=== PATIENT | female | born 1990 | race African-American/Black ===

== ENCOUNTER 2024-03-03 17:55 | Day surgery (SDC) | payer BC, OTHER ==
[2024-03-03] MEDS ORDERED: hydrALAZINE 20 MG/ML VIAL SLOW IVP PRN (19:05)
[2024-03-03] MEDS: Acetaminophen 500 MG TAB PO SCH (19:50)
[2024-03-03] MEDS: Cephalexin 500 MG CAP PO SCH (19:50)
[2024-03-03 20:21] LABS: #Basophils 0.02 10x3/uL (0.0-0.2); #Eosinophils 0.08 10x3/uL (0.0-0.5); #Monocytes 0.75 10x3/uL (0.0-1.1); #Neutrophils 8.21 10x3/uL (1.5-8.4); %Basophils 0.2 % (0.0-2.0); %Eosinophils 0.7 % (0.0-6.0); %Lymphocytes 15.9 % (18.0-47.0); %Monocytes 6.9 % (0.0-10.0); %Neutrophils 75.7 % (40.0-75.0); Hemoglobin 11.2 g/dL (12.0-15.5); Mean Corpuscular Hemoglobin 28.7 pg (27.0-33.0); Mean Corpuscular Volume 89.7 fL (81.6-98.3); Mean Platelet Volume 10.8 fL (7.4-10.4); Platelet Count 334 10x3/uL (150-450); RBC Distribution Width 13.3 % (11.5-14.5); White Blood Cell (WBC) Count 10.9 10x3/uL (3.5-10.5)
[2024-03-03 20:37] LABS: ALT (SGPT) 17 U/L (8-55); AST (SGOT) 16 U/L (5-34); Albumin 2.7 g/dL (3.5-5.0); Alkaline Phosphatase 106 U/L (40-110); Anion Gap 13 mmol/L (10-20); BUN (Urea Nitrogen) 6 mg/dL (7.0-18.7); Bilirubin, Total 0.4 mg/dL (0.2-1.2); Calc. Creatinine Clearance 0 mL/min (70-130); Calcium 9.3 mg/dL (7.8-10.44); Carbon Dioxide 21 mmol/L (22-29); Chloride 108 mmol/L (98-107); Estimated GFR 120; Globulin 3.3 g/dL (2.4-3.5); Glucose 85 mg/dL (70-105); Potassium 3.7 mmol/L (3.5-5.1); Sodium 138 mmol/L (136-145)
[2024-03-03 21:26] VITALS: BMI 28.4
== END 2024-03-03 22:20 | disposition home or self-care (01) ==
LOC: CSHLD/OP 17:55
PROVIDERS: ATTEND Emergency Medicine
DX: O99.891 Other specified diseases and conditions complicating pregnancy (principal); M54.50 Low back pain, unspecified; O21.2 Late vomiting of pregnancy; O23.43 Unspecified infection of urinary tract in pregnancy, third trimester; O10.913 Unspecified pre-existing hypertension complicating pregnancy, third trimester; O99.213 Obesity complicating pregnancy, third trimester; O99.353 Diseases of the nervous system complicating pregnancy, third trimester; G40.909 Epilepsy, unspecified, not intractable, without status epilepticus; Z79.899 Other long term (current) drug therapy; Z98.890 Other specified postprocedural states; Z3A.37 37 weeks gestation of pregnancy
CPT/HCPCS: 36415; 80053; 85025; 99283

== ENCOUNTER 2024-03-12 09:38 | Inpatient (IN) | payer OTHER ==
[2024-03-11 13:03] LABS: Hematocrit 36.2 % (34.9-44.5); Hemoglobin 12.1 g/dL (12.0-15.5); Mean Corpuscular HGB CONC 33.4 g/dL (32.0-36.0); Mean Corpuscular Hemoglobin 29.3 pg (27.0-33.0); Mean Corpuscular Volume 87.7 fL (81.6-98.3); Mean Platelet Volume 10.6 fL (7.4-10.4); Platelet Count 360 10x3/uL (150-450); RBC Distribution Width 13.4 % (11.5-14.5); Red Blood Cell (RBC) Count 4.13 10x6/uL (3.90-5.03); White Blood Cell (WBC) Count 13.2 10x3/uL (3.5-10.5)
[2024-03-11 13:45] LABS: HBsAg Index 0.18 S/CO (0-0.99); Hep B Surf Ag Non-Reactive S/CO (NonReactive); Syphilis Antibody Nonreactive (Nonreactive); Syphilis Antibody Index 0.05 S/CO (<1.00 Non-Reactive)
[2024-03-12] MEDS ORDERED: Promethazine HCl 25 MG/ML VIAL IM PRN ×3 (10:25→18:02)
[2024-03-12] MEDS ORDERED: Ondansetron PF 4 MG/2 ML Vial IVP PRN ×5 (10:25→18:02)
[2024-03-12] MEDS ORDERED: hydrALAZINE 20 MG/ML VIAL SLOW IVP PRN ×2 (10:25→17:40)
[2024-03-12] MEDS ORDERED: Diphenoxylate HCl/Atropine Tablet PO PRN ×2 (10:26)
[2024-03-12] MEDS ORDERED: Misoprostol 200 MCG TAB PR PRN (10:26)
[2024-03-12] MEDS ORDERED: Tranexamic Acid 1,000 MG/10 ML VIAL IVP PRN (10:26)
[2024-03-12] MEDS ORDERED: Carboprost 250 MCG/ML AMP IM PRN (10:26)
[2024-03-12] MEDS ORDERED: Lactated Ringer's 1,000 ML IV SCH (10:30)
[2024-03-12] MEDS ORDERED: Oxytocin 30 units/NS 500 ML 500 ML IV SCH (10:30)
[2024-03-12] MEDS ORDERED: CEFAZOLIN 2 GM in Sodium Chloride 0.9% 100 ML IVPB SCH (10:30)
[2024-03-12 10:40] VITALS: BMI 44.6
[2024-03-12] MEDS: Famotidine/PF 20 mg/2ml Vial SLOW IVP PRN (11:46)
[2024-03-12] MEDS: Bicitra 30 ML UDCUP PO PRN (11:46)
[2024-03-12] MEDS ORDERED: Moisturizing Cream (Eucerin) 113 GM JAR TOP PRN ×2 (12:08→18:02)
[2024-03-12] MEDS ORDERED: Naloxone HCl 0.4 mg/ml Vial IVP PRN ×4 (12:08→18:02)
[2024-03-12] MEDS ORDERED: Morphine 4 MG/ML VIAL SLOW IVP PRN ×2 (12:08→18:02)
[2024-03-12] MEDS ORDERED: Ketorolac Tromethamine 30 MG (1 mL) VIAL IVP PRN (12:08)
[2024-03-12] MEDS ORDERED: Meperidine HCl/PF 25 MG (1 mL) VIAL SLOW IVP PRN ×2 (12:08→18:02)
[2024-03-12] MEDS ORDERED: fentaNYL 50 mcg/mL 1 mL Vial SLOW IVP PRN (12:08)
[2024-03-12] MEDS ORDERED: diphenhydrAMINE 50 MG/ML VIAL IVP PRN (12:08)
[2024-03-12] MEDS ORDERED: Naloxone HCl 0.4 mg/ml Vial IV PRN ×2 (12:08→18:02)
[2024-03-12] MEDS ORDERED: Ketorolac Tromethamine 30 MG (1 mL) VIAL IVP SCH ×2 (12:15→18:15)
[2024-03-12] MEDS ORDERED: Communication Order-Pharmacy FS SCH ×2 (12:15→18:15)
[2024-03-12] MEDS ORDERED: CEFAZOLIN 1 GM VIAL SLOW IVP SCH (15:30)
[2024-03-12] MEDS: CEFAZOLIN 2 GM in Sodium Chloride 0.9% 100 ML IVPB SCH (16:08)
[2024-03-12] MEDS ORDERED: diphenhydrAMINE 25 MG CAP PO PRN (17:40)
[2024-03-12] MEDS ORDERED: Bisacodyl 10 MG SUPP PR PRN (17:40)
[2024-03-12] MEDS ORDERED: Lanolin Ointment 7 GM TUBE TOP PRN (17:40)
[2024-03-12] MEDS: fentaNYL 50 mcg/mL 1 mL Vial SLOW IVP PRN (19:07)
[2024-03-12] MEDS: Morphine PF 10 MG/10 ML VIAL ONE (20:31)
[2024-03-12] MEDS: Dexmedetomidine 200 MCG/2 ML VIAL ONE (20:31)
[2024-03-12] MEDS: Sodium Chloride 0.9% 10 ML ONE (20:32)
[2024-03-12] MEDS: PHENYLEPHRINE-NS 100 MCG/ML 10 ML SYRINGE ONE (20:32)
[2024-03-12] MEDS: Dexamethasone 10 MG/ML VIAL ONE (20:32)
[2024-03-12] MEDS: Oxytocin 10 UNITS/ML VIAL ONE (20:32)
[2024-03-12] MEDS: Ferrous Sulfate 325 MG TAB PO SCH (20:33)
[2024-03-12] MEDS: Ketorolac Tromethamine 30 MG (1 mL) VIAL IVP PRN (22:40)
[2024-03-12] MEDS: Phytonadione Neonatal 1 MG/0.5 ML AMP ONE (22:41)
[2024-03-12] MEDS: Ondansetron PF 4 MG/2 ML Vial ONE (22:41)
[2024-03-12] MEDS: Erythromycin Base 0.5% Oint 1 GM TUBE ONE (22:41)
[2024-03-12] MEDS: Ketorolac Tromethamine 30 MG (1 mL) VIAL ONE (22:41)
[2024-03-13] MEDS: diphenhydrAMINE 50 MG/ML VIAL IVP PRN (04:30)
[2024-03-13 05:53] LABS: Hematocrit 29.9 % (34.9-44.5); Hemoglobin 9.8 g/dL (12.0-15.5); Mean Corpuscular HGB CONC 32.8 g/dL (32.0-36.0); Mean Corpuscular Hemoglobin 29.3 pg (27.0-33.0); Mean Corpuscular Volume 89.3 fL (81.6-98.3); Mean Platelet Volume 10.5 fL (7.4-10.4); Platelet Count 290 10x3/uL (150-450); RBC Distribution Width 13.2 % (11.5-14.5); Red Blood Cell (RBC) Count 3.35 10x6/uL (3.90-5.03)
[2024-03-13] MEDS: Hepatitis B Vaccine 10 MCG/0.5 ML SYR ONE (07:45)
[2024-03-13] MEDS: Boostrix 0.5 ML (Tdap) VIAL (>/=7 yrs of age) IM ONE (07:46)
[2024-03-13] MEDS: Prenatal Vitamin 1 TAB PO SCH (07:47)
[2024-03-13] MEDS: HYDROcodone/Acetaminophen 5/325 mg Tablet PO PRN ×2 (07:47→21:05)
[2024-03-13] MEDS: Simethicone Chewable 80 MG TAB PO PRN (07:47)
[2024-03-13] MEDS: Ibuprofen 800 MG TAB PO SCH (14:17)
[2024-03-13] MEDS: Docusate 100 MG CAP PO PRN (21:05)
[2024-03-14 05:35] LABS: Hematocrit 30.7 % (34.9-44.5); Hemoglobin 10.4 g/dL (12.0-15.5); Mean Corpuscular HGB CONC 33.9 g/dL (32.0-36.0); Mean Corpuscular Hemoglobin 30.1 pg (27.0-33.0); Mean Corpuscular Volume 88.7 fL (81.6-98.3); Mean Platelet Volume 10.8 fL (7.4-10.4); Platelet Count 357 10x3/uL (150-450); RBC Distribution Width 13.6 % (11.5-14.5); Red Blood Cell (RBC) Count 3.46 10x6/uL (3.90-5.03); White Blood Cell (WBC) Count 13.5 10x3/uL (3.5-10.5)
[2024-03-15 07:32] VITALS: BP 127/59; TEMP 98
== END 2024-03-15 13:20 | disposition home or self-care (01) | DRG 787 ==
LOC: CSHLD 09:38 → CSHPP 20:05
PROVIDERS: ADMIT Family Medicine; ATTEND Family Medicine
PROC: 10D00Z1 Extraction of Products of Conception, Low, Open Approach (ICD-10-PCS; principal; 2024-03-12)
DX: O34.211 Maternal care for low transverse scar from previous cesarean delivery (principal); O10.92 Unspecified pre-existing hypertension complicating childbirth; O99.214 Obesity complicating childbirth; Z3A.38 38 weeks gestation of pregnancy; Z37.0 Single live birth; Z90.49 Acquired absence of other specified parts of digestive tract; Z79.899 Other long term (current) drug therapy; Z87.891 Personal history of nicotine dependence; O36.5930 Maternal care for other known or suspected poor fetal growth, third trimester, not applicable or unspecified
CPT/HCPCS: 36415; 51702; 85027; 86780; 86850; 86900; 86901; 87340; J1100; J1200; J1885; J2274; J2405; J2590; J3010; J3490

== ENCOUNTER 2024-03-20 13:11 | Emergency (ER) | payer OTHER | END 2024-03-20 13:48 | disposition home or self-care (01) | LOC: CSHERS 13:11 | DX: Z48.01 Encounter for change or removal of surgical wound dressing (principal) | CPT/HCPCS: 99282 ==

== ENCOUNTER 2025-02-23 09:15 | Inpatient (IN) | payer BC, OTHER ==
[2025-02-22 13:27] LABS: Hematocrit 35.5 % (34.9-44.5); Hemoglobin 12.0 g/dL (12.0-15.5); Platelet Count 375 10x3/uL (150-450)
[2025-02-22 14:21] LABS: HIV (1/2) Antibody/Antigen NonReactive (NonReactive); Hep B Surf Ag NonReactive S/CO (NonReactive)
[2025-02-22 14:22] LABS: HIV 1/2 INDEX 0.22 S/CO (<1.00); Syphilis Antibody Index 0.08 S/CO (<1.00 Non-Reactive)
[2025-02-23] MEDS ORDERED: Methylergonovine 0.2 MG/ML VIAL IM PRN (09:41)
[2025-02-23] MEDS ORDERED: Acetaminophen 500 MG TAB PO PRN (09:41)
[2025-02-23] MEDS ORDERED: Diphenoxylate HCl/Atropine Tablet PO PRN (09:41)
[2025-02-23] MEDS ORDERED: Famotidine/PF 20 mg/2ml Vial SLOW IVP PRN (09:41)
[2025-02-23] MEDS ORDERED: hydrALAZINE 20 MG/ML VIAL SLOW IVP PRN (09:41)
[2025-02-23] MEDS ORDERED: Ondansetron PF 4 MG/2 ML Vial IVP PRN ×6 (09:41→17:19)
[2025-02-23] MEDS ORDERED: Tranexamic Acid 1,000 MG/10 ML VIAL IVP PRN (09:41)
[2025-02-23] MEDS ORDERED: Bicitra 30 ML UDCUP PO PRN (09:41)
[2025-02-23] MEDS ORDERED: diphenhydrAMINE 50 MG/ML VIAL IVP PRN (10:06)
[2025-02-23] MEDS ORDERED: Meperidine HCl/PF 25 MG (1 mL) VIAL SLOW IVP PRN ×2 (10:06→17:19)
[2025-02-23] MEDS ORDERED: Ketorolac Tromethamine 30 MG (1 mL) VIAL IVP SCH ×2 (10:15→17:30)
[2025-02-23] MEDS ORDERED: Communication Order-Pharmacy FS SCH ×2 (10:15→17:30)
[2025-02-23 10:27] VITALS: BMI 43.6
[2025-02-23] MEDS: Azithromycin 500 MG in Sodium Chloride 0.9% 250 ML 250 ML IVPB SCH (11:57)
[2025-02-23] MEDS: Carboprost 250 MCG/ML AMP IM PRN (11:58)
[2025-02-23] MEDS ORDERED: Lanolin Ointment 7 GM TUBE TOP PRN (12:11)
[2025-02-23] MEDS ORDERED: Bisacodyl 10 MG SUPP PR PRN (12:11)
[2025-02-23] MEDS ORDERED: Oxytocin 30 units/NS 500 ML 500 ML IV SCH (12:15)
[2025-02-23] MEDS: Diphenoxylate HCl/Atropine Tablet PO PRN (13:19)
[2025-02-23] MEDS: Ketorolac Tromethamine 30 MG (1 mL) VIAL IVP PRN ×2 (13:25→19:40)
[2025-02-23] MEDS: NIFEdipine XL 30 MG ER.TAB PO SCH (13:38)
[2025-02-23] MEDS ORDERED: Calcium Gluc 4.6 MEQ/10 ML (100 MG/ML) SLOW IVP PRN (13:44)
[2025-02-23] MEDS: hydrALAZINE 20 MG/ML VIAL SLOW IVP PRN (13:49)
[2025-02-23] MEDS: Magnesium Sulfate 20 gm/500 ml 20 GM/500 ML BAG ONE (13:55)
[2025-02-23] MEDS: Oxytocin 30 units/NS 500 ML 500 ML IV SCH (13:56)
[2025-02-23 15:38] LABS: #Basophils 0.03 10x3/uL (0.0-0.2); #Eosinophils 0.07 10x3/uL (0.0-0.5); #Monocytes 0.71 10x3/uL (0.0-1.1); #Neutrophils 14.30 10x3/uL (1.5-8.4); %Basophils 0.2 % (0.0-2.0); %Eosinophils 0.4 % (0.0-6.0); %Lymphocytes 8.3 % (18.0-47.0); %Monocytes 4.3 % (0.0-10.0); %Neutrophils 86.3 % (40.0-75.0); Hematocrit 34.9 % (34.9-44.5); Hemoglobin 11.7 g/dL (12.0-15.5); Mean Corpuscular Hemoglobin 29.6 pg (27.0-33.0); Mean Corpuscular Volume 88.4 fL (81.6-98.3); Platelet Count 356 10x3/uL (150-450); Red Blood Cell (RBC) Count 3.95 10x6/uL (3.90-5.03); White Blood Cell (WBC) Count 16.56 10x3/uL (3.5-10.5)
[2025-02-23 16:17] LABS: ALT (SGPT) 7 U/L (Less than 34); AST (SGOT) 21 U/L (11-34); Albumin 2.6 g/dL (3.1-4.5); Alkaline Phosphatase 149 U/L (40-110); Anion Gap 10 mmol/L (10-20); BUN (Urea Nitrogen) 5 mg/dL (7.0-18.7); Bilirubin, Total 0.5 mg/dL (0.3-1.2); Calc. Creatinine Clearance 272 mL/min (70-130); Calcium 8.9 mg/dL (7.8-10.44); Carbon Dioxide 18 mmol/L (22-29); Chloride 107 mmol/L (98-107); Globulin 3.6 g/dL (2.4-3.5); Glucose 92 mg/dL (70-105); Potassium 3.3 mmol/L (3.5-5.1); Sodium 132 mmol/L (136-145)
[2025-02-23] MEDS ORDERED: HYDROmorphone 0.5 MG/0.5 ML SYRINGE SLOW IVP PRN (17:19)
[2025-02-24 04:29] LABS: Hematocrit 30.7 % (34.9-44.5); Hemoglobin 10.3 g/dL (12.0-15.5); Mean Corpuscular Hemoglobin 29.9 pg (27.0-33.0); Mean Corpuscular Volume 89.0 fL (81.6-98.3); Platelet Count 298 10x3/uL (150-450); Red Blood Cell (RBC) Count 3.45 10x6/uL (3.90-5.03); White Blood Cell (WBC) Count 10.99 10x3/uL (3.5-10.5)
[2025-02-24] MEDS: Oxytocin 10 UNITS/ML VIAL ONE (05:47)
[2025-02-24] MEDS: Phenylephrine 40 MG/NS 250 ML 250 ML ONE (05:47)
[2025-02-24] MEDS: Acetaminophen 325 MG TAB PO PRN (05:52)
[2025-02-24] MEDS: Magnesium Sulfate 20 gm/500 ml 20 GM/500 ML BAG IVPB SCH (09:26)
[2025-02-24] MEDS: Enoxaparin 40 MG (0.4 mL) SYRINGE SC SCH (09:27)
[2025-02-24] MEDS: NIFEdipine XL 30 MG ER.TAB PO SCH (09:28)
[2025-02-24] MEDS: Metoclopramide HCl 10 MG (2 mL) VIAL IVP SCH (09:29)
[2025-02-24] MEDS: diphenhydrAMINE 50 MG/ML VIAL IVP PRN (09:30)
[2025-02-24] MEDS ORDERED: HYDROcodone/Acetaminophen 5/325 mg Tablet PO PRN (10:16)
[2025-02-24] MEDS: Simethicone Chewable 80 MG TAB PO PRN (12:59)
[2025-02-24] MEDS: Famotidine 20 MG TAB PO PRN (18:02)
[2025-02-24] MEDS ORDERED: Famotidine/PF 20 mg/2ml Vial SLOW IVP SCH (19:15)
[2025-02-24] MEDS: Ibuprofen 800 MG TAB PO SCH (21:11)
[2025-02-24] MEDS ORDERED: Acetaminophen 325 MG TAB PO PRN (21:30)
[2025-02-24] MEDS: HYDROcodone/Acetaminophen 5/325 mg Tablet PO PRN (21:50)
[2025-02-25 00:41] LABS: Group B Streptococcus by PCR Not Detected (NotDetected)
[2025-02-25] MEDS: HYDROcodone/Acetaminophen 5/325 mg Tablet PO PRN (04:05)
[2025-02-25] MEDS ORDERED: Acetaminophen 325 MG TAB PO PRN (06:00)
[2025-02-25] MEDS: Acetaminophen 325 MG TAB PO SCH (10:23)
[2025-02-25] MEDS: HYDROcodone/Acetaminophen 5/325 mg Tablet PO SCH (13:24)
[2025-02-25] MEDS: NIFEdipine XL 30 MG ER.TAB PO SCH (18:16)
[2025-02-25] MEDS: hydrALAZINE 20 MG/ML VIAL SLOW IVP PRN (20:28)
[2025-02-25] MEDS: hydrALAZINE 20 MG/ML VIAL SLOW IVP SCH (21:28)
[2025-02-25] MEDS ORDERED: Acetaminophen 500 MG TAB PO PRN (21:40)
[2025-02-25] MEDS ORDERED: HYDROcodone/Acetaminophen 5/325 mg Tablet PO SCH (21:45)
[2025-02-25] MEDS: HYDROcodone/Acetaminophen 10/325 mg Tablet PO SCH (22:23)
[2025-02-25 23:09] LABS: #Basophils Less than 0.03 10x3/uL (0.0-0.2); #Eosinophils 0.38 10x3/uL (0.0-0.5); #Monocytes 0.99 10x3/uL (0.0-1.1); #Neutrophils 8.60 10x3/uL (1.5-8.4); %Basophils 0.2 % (0.0-2.0); %Eosinophils 3.1 % (0.0-6.0); %Lymphocytes 17.1 % (18.0-47.0); %Monocytes 8.2 % (0.0-10.0); %Neutrophils 70.8 % (40.0-75.0); Hematocrit 30.9 % (34.9-44.5); Hemoglobin 10.4 g/dL (12.0-15.5); Mean Corpuscular Hemoglobin 30.0 pg (27.0-33.0); Mean Corpuscular Volume 89.0 fL (81.6-98.3); Platelet Count 360 10x3/uL (150-450); Red Blood Cell (RBC) Count 3.47 10x6/uL (3.90-5.03); White Blood Cell (WBC) Count 12.14 10x3/uL (3.5-10.5)
[2025-02-25 23:23] LABS: ALT (SGPT) 9 U/L (Less than 34); AST (SGOT) 17 U/L (11-34); Albumin 2.7 g/dL (3.1-4.5); Alkaline Phosphatase 132 U/L (40-110); Anion Gap 13 mmol/L (10-20); BUN (Urea Nitrogen) 7 mg/dL (7.0-18.7); Bilirubin, Total 0.4 mg/dL (0.3-1.2); Calc. Creatinine Clearance 249 mL/min (70-130); Calcium 9.0 mg/dL (7.8-10.44); Carbon Dioxide 20 mmol/L (22-29); Chloride 109 mmol/L (98-107); Globulin 3.8 g/dL (2.4-3.5); Glucose 74 mg/dL (70-105); Potassium 3.8 mmol/L (3.5-5.1); Sodium 138 mmol/L (136-145)
[2025-02-26] MEDS: HYDROcodone/Acetaminophen 5/325 mg Tablet PO PRN (04:19)
[2025-02-26] MEDS: NIFEdipine XL 60 MG ER.TAB PO SCH (08:23)
[2025-02-26 16:18] VITALS: BP 137/71; TEMP 98
== END 2025-02-26 18:10 | disposition home or self-care (01) | DRG 784 ==
LOC: CSHLD 09:15 → CSHPP 02-24 15:30
PROVIDERS: ADMIT Family Medicine; ATTEND Family Medicine
PROC: 10D00Z1 Extraction of Products of Conception, Low, Open Approach (ICD-10-PCS; principal; 2025-02-23)
PROC: 0UB70ZZ Excision of Bilateral Fallopian Tubes, Open Approach (ICD-10-PCS; 2025-02-23)
DX: O34.211 Maternal care for low transverse scar from previous cesarean delivery (principal); O99.355 Diseases of the nervous system complicating the puerperium; O99.214 Obesity complicating childbirth; E66.813 Obesity, class 3; Z37.0 Single live birth; Z3A.38 38 weeks gestation of pregnancy; O11.4 Pre-existing hypertension with pre-eclampsia, complicating childbirth; G43.909 Migraine, unspecified, not intractable, without status migrainosus
CPT/HCPCS: 36415; 51702; 71045; 80053; 82570; 84156; 85014; 85018; 85025; 85027; 85049; 86780; 86850; 86900; 86901; 87340; 87389; 87653; 88302; J0360; J0456; J1200; J1650; J1885; J2250; J2274; J2590; J2765; J3010; J3475; J3490; J7050; J7120